=== PATIENT | female | born 1945 | race Two or more races ===

== ENCOUNTER 2017-03-03 06:52 | Day surgery (SDC) | payer MEDICARE ==
[~2017-03-03] VITALS: Ht 154.9 cm; Wt 60.8 kg
[~2017-03-03 06:52] MED LIST: BP MED; OMEGA 3 PO; VITAMIN D PO
[2017-03-03] MEDS ORDERED: EPINEPHRINE 1 MG/ML, 1ML ONE (07:10)
[2017-03-03] MEDS ORDERED: NEOMY/POLYMYXIN B GU IRR. 1 ML IRRIG ONE (07:10)
[2017-03-03] MEDS ORDERED: BUPIVACAINE/PF 0.25% ONE (07:10)
[2017-03-03] MEDS ORDERED: LACTATED RINGERS 1,000 ML IV SCH (07:19)
[2017-03-03 07:22] VITALS: BP 135/79
[2017-03-03 08:04] LABS: BLOOD UREA NITROGEN 10 mg/dL (7-18)
[2017-03-03 08:08] LABS: ASPARTATE AMINO TRANSFERASE 19 U/L (15-37)
[2017-03-03] MEDS ORDERED: MIDAZOLAM 1 MG/ML, 2ML ONE (08:25)
[2017-03-03] MEDS ORDERED: FENTANYL PF 100 MCG/2ML ONE ×2 (08:25→11:59)
[2017-03-03] MEDS ORDERED: LIDOCAINE-MPF 2% ,5ML ONE (09:41)
[2017-03-03] MEDS ORDERED: KETOROLAC 30 MG/1 ML ONE (09:41)
[2017-03-03] MEDS ORDERED: SUCCINYLCHOLINE 20 MG/ML, 10ML ONE (09:41)
[2017-03-03] MEDS ORDERED: CEFAZOLIN 1,000 MG ONE (10:12)
[2017-03-03] MEDS ORDERED: PROPOFOL 10 MG/ML, 20ML ONE (10:12)
[2017-03-03] MEDS ORDERED: DEXAMETHASONE 4 MG/ML, 1ML ONE (10:12)
[2017-03-03] MEDS ORDERED: ONDANSETRON 2MG/ML, 2ML ONE ×2 (10:12→17:04)
[2017-03-03] MEDS ORDERED: FUROSEMIDE 20 MG/2 ML ONE (10:16)
[2017-03-03] MEDS ORDERED: hydrALAzine 20 MG/ML, 1ML IV PRN (10:30)
[2017-03-03] MEDS ORDERED: METOPROLOL 1 MG/ML, 5ML IV PRN (10:30)
[2017-03-03] MEDS ORDERED: ACETAMINOPHEN 325 MG TABLET PO PRN (10:30)
[2017-03-03] MEDS ORDERED: OXYcodone 5 MG/5 ML ORAL.SOL UDC PO PRN (10:30)
[2017-03-03] MEDS ORDERED: ALBUTEROL SULFATE 2.5 MG/3 ML NPPB PRN (10:30)
[2017-03-03] MEDS ORDERED: MEPERIDINE/PF 25MG/0.5ML IVPush PRN (10:30)
[2017-03-03] MEDS ORDERED: PROMETHAZINE 25 MG/ML, 1ML IV PRN (10:30)
[2017-03-03] MEDS ORDERED: HYDROmorphone 1 MG/ML, 1ML IV PRN (10:30)
[2017-03-03] MEDS ORDERED: MIDAZOLAM 1 MG/ML, 2ML IV PRN (10:30)
[2017-03-03] MEDS: FENTANYL PF 100 MCG/2ML IV PRN ×2 (11:51→12:05)
[2017-03-03] MEDS ORDERED: ACETAMINOPHEN 650 MG/20.3 ML UDC ONE (11:55)
[2017-03-03] MEDS ORDERED: OXYcodone 5 MG/5 ML ORAL.SOL UDC ONE (11:56)
[2017-03-03] MEDS ORDERED: HYDROmorphone 2 MG/ML, 1ML ONE (14:24)
[2017-03-03] MEDS ORDERED: HYDROmorphone 2 MG/ML, 1ML IVPush PRN (14:30)
[2017-03-03] MEDS ORDERED: ONDANSETRON 2MG/ML, 2ML IVPush PRN (17:30)
[2017-03-03] MEDS ORDERED: OXYcodone/APAP 5/325MG TABLET PO PRN (17:30)
[2017-03-03] MEDS ORDERED: HYDROcodone/APAP 5/325 TABLET PO PRN (17:30)
== END 2017-03-03 18:30 | disposition home or self-care (01) ==
LOC: OUT 06:52
PROVIDERS: ATTEND Obstetrics & Gynecology Female Pelvic Medicine and Reconstructive Surgery
DX: N81.89 Other female genital prolapse (principal); N94.10 Unspecified dyspareunia; N39.46 Mixed incontinence; N81.11 Cystocele, midline; N81.5 Vaginal enterocele; N81.6 Rectocele; I10 Essential (primary) hypertension; E11.9 Type 2 diabetes mellitus without complications; E78.5 Hyperlipidemia, unspecified; Z90.49 Acquired absence of other specified parts of digestive tract; Z98.890 Other specified postprocedural states
CPT/HCPCS: 36415; 57265; 57282; 57288; 80053; 93005; C1758; C1769; C1771; J0171; J0330; J0690; J1100; J1885; J1940; J2250; J2405; J2704; J3010; J3490; J7120